=== PATIENT | female | born 1950 | race Caucasian/White ===

== ENCOUNTER 2017-10-28 10:20 | Outpatient (CLI) | payer OTHER | END 2017-10-28 10:21 | disposition home or self-care (01) | LOC: BICRAD 10:20 | PROVIDERS: ATTEND Family Medicine | DX: R06.2 Wheezing (principal); J84.9 Interstitial pulmonary disease, unspecified; I70.0 Atherosclerosis of aorta | CPT/HCPCS: 71046 ==

== ENCOUNTER 2017-12-01 16:18 | Outpatient (CLI) | payer OTHER | END 2017-12-01 16:19 | disposition home or self-care (01) | LOC: BICMAMMO 16:18 | PROVIDERS: ATTEND Family Medicine | DX: Z12.31 Encounter for screening mammogram for malignant neoplasm of breast (principal) | CPT/HCPCS: 77063; 77067 ==

== ENCOUNTER 2018-06-27 09:03 | Outpatient (CLI) | payer BC, SELFPAY ==
--- NOTE | 2018-06-27 09:41 | RAD ---
TWO VIEWS CHEST: History: Dyspnea. Comparison: None. FINDINGS: Normal cardiac silhouette. Pulmonary vessels and hilum are normal. Costophrenic angles are clear. No consolidation or mass. No pneumothorax or osseous abnormalities. IMPRESSION: No acute cardiopulmonary process. POS: [facility]
== END 2018-06-27 09:04 | disposition home or self-care (01) ==
LOC: RAD 09:03
PROVIDERS: ATTEND Internal Medicine Critical Care Medicine
DX: R06.00 Dyspnea, unspecified (principal)
CPT/HCPCS: 71046